=== PATIENT | female | born 1950 | race Caucasian/White ===

== ENCOUNTER 2020-01-12 21:04 | Observation (INO) | payer BC, MEDICARE, OTHER ==
[2020-01-12] MEDS ORDERED: Sodium Chloride 0.9% 1000 ML 1,000 ML IV STA (21:37)
--- NOTE | 2020-01-12 21:43 | ERPHSYRPT ---
- History of Present Illness Time Seen by Provider: 01/12/20 21:28 Source: patient, family, EMS Exam Limitations: other (confusion) Physician History: 69 years old female with multiple medical problems including multiple myeloma currently on oral chemotherapy presented in the ER via EMS with chief complaint of sudden onset confusion, generalized weakness with inability to stand up and ambulate and some confusion almost an hour prior to arrival. Patient is not a very good historian and history is obtained from EMS/. report patient was doing fine and all of a sudden her symptoms started. She has no fever or chills cough or shortness of breath. Patient was sleepy but arousable on EMS arrival. She is maintaining her oxygen saturation around 98% on room air. Patient denies chest pain shortness of breath, abdominal pain nausea or vomiting. She is moving all 4 extremities. Patient is following most of the commands but is confused. This is not her baseline. Per patient is having a downhill course for the last 4 weeks and has been seen at [place] few days ago, was given IV fluids but does not seem much improvement. She has COVID testing done outpatient but not resulted yet. Timing/Duration: today, sudden Severity: moderate Character of Deficits: impaired speech, Left Facial Deficits: off balance Baseline/Normal Cognition: alert oriented x 3 Current Cognition: alert but confused Baseline Gait: walks w/o assistance Associated Symptoms: confusion, fatigue, weakness, slurred speech, trouble walking, No fever, No chills - Review of Systems All Other Systems: Unable due to condition - [place] Coma Scale Best Eye Response (Lesly): (4) open spontaneously Best Verbal Response (Lesly): (4) confused conversation Best Motor Response ([place]): (6) obeys commands Lesly Total: 14 - Physical Exam General Appearance: no apparent distress, alert Eye Exam: bilateral eye: normal inspection, PERRL, EOMI Ears, Nose, Throat Exam: other (Facial droop/facial asymmetry) Neck Exam: normal inspection, supple, full range of motion Respiratory: normal breath sounds, lungs clear Cardiovascular: regular rate/rhythm, normal heart sounds Gastrointestinal: soft, normal bowel sounds, No tenderness Back Exam: normal inspection, No CVA tenderness Extremity Exam: normal inspection, normal range of motion, pelvis stable Mental Status: alert, cooperative, disoriented to time, 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 Exam: normal hearing, PERRL, facial asymmetry, facial droop, No normal speech Motor/Sensory: no motor deficit, no sensory deficit Skin Exam: normal color SpO2 Interpretation: normal O2 Delivery: Room Air Ordered Tests: Active Orders 24 hr Category Date Time Status Accucheck STAT Care 01/12/20 21:37 Active Shop Welder STAT Care 01/12/20 21:38 Active Catheter-Shafter Macario STAT Care 01/12/20 21:37 Active EKG-ER Only STAT Care 01/12/20 21:37 Active IV Insertion STAT Care 01/12/20 21:37 Active IV Insertion-2nd Peripheral STAT Care 01/12/20 21:37 Active NPO (ED) STAT Care 01/12/20 21:37 Active CHEST 1 VIEW (PORTABLE) Stat Exams 01/12/20 21:[address] ANGIOGRAPHY NECK [CT] Routine Exams 01/12/20 Ordered CTA HEAD W AND/OR WO CONTRAST [CT] Stat Exams 01/12/20 23:17 Ordered HEAD WITHOUT CONTRAST [CT] Stat Exams 01/12/20 21:37 Taken ARTERIAL BLOOD GASES Urgent Lab 01/12/20 22:12 Completed BLOOD CULTURE Stat Lab 01/12/20 23:31 Received CBC W DIFF Stat Lab 01/12/20 22:15 Completed CMP Stat Lab 01/12/20 22:15 Completed CULTURE,URINE Stat Lab 01/12/20 23:37 Received Lactic Acid Stat Lab 01/12/20 22:12 Completed MAG [MAGNESIUM] Stat Lab 01/12/20 22:00 Completed Manual Differential NC Stat Lab 01/12/20 22:15 Completed PROTIME WITH INR Stat Lab 01/12/20 22:15 Completed PTT Stat Lab 01/12/20 22:15 Completed UA W/RFX UR CULTURE Stat Lab 01/12/20 23:37 Completed Transfer Order Routine Transfer 01/12/20 Ordered Medication Summary Generic Name Dose Route Start Last Admin Trade Name Freq PRN Reason Stop Dose Admin Vancomycin HCl 250 mls @ 250 mls/hr 01/12/20 23:15 Vancomycin 1gm/ Ns 250ml IV 01/13/20 01:14 Q1H [place] Discontinued Medications Generic Name Dose Route Start Last Admin Trade Name Freq PRN Reason Stop Dose Admin Sodium Chloride 1,000 mls @ 999 mls/hr 01/12/20 21:37 01/12/20 22:07 Sodium Chloride 0.9% 1000 Ml IV 01/12/20 22:37 999 mls/hr .Q1H1M STA Administration Sodium Chloride Confirm 01/12/20 21:49 Sodium Chloride 0.9% 1000 Ml Administered 01/12/20 21:50 Dose 1,000 mls @ ud .ROUTE .STK-MED ONE Piperacillin Sod/Tazobactam 100 mls @ 200 mls/hr 01/12/20 23:13 Sod 3.375 gm/ Sodium Chloride IV 01/12/20 23:42 STAT ONE Piperacillin Sod/Tazobactam Sod Confirm 01/12/20 23:52 Zosyn 3.375 Gm Vial Administered 01/12/20 23:53 Dose 3.375 gm IV .STK-MED ONE Lab/Rad Data: Laboratory Result Diagrams 01/12/20 22:15 01/12/20 22:15 Laboratory Results 01/12/20 01/12/20 01/12/20 Range/Units 23:37 22:15 22:15 WBC (4.0-10.5) K/mm3 RBC (4.1-5.4) M/mm3 Hgb (12.0-16.0) gm/dl Hct (35-47) % MCV (78-100) fl MCH (26-32) pg MCHC (32-36) g/dl RDW (11.5-14.0) % Plt Count (150-450) K/mm3 MPV (7.5-11.0) fl PT 16.1 H (9.95-12.35) SECONDS INR 1.41 (0.8-3.0) APTT 24.3 L (25.3-37.0) SECONDS Puncture Site pCO2 (35-45) mmHg pO2 (75-100) mmHg Base Excess (-2.0-2.0) O2 Saturation (94-100) g/dF ABG pH (7.35-7.45) ABG HCO3 (22-28) ABG O2 Sat (Measured) (95-100) % Adrian Test A-a Gradient a/A Ratio Hemoglobin Carboxyhemoglobin (0.0-6.9) % THgb Methemoglobin (1.4-1.5) % Potassium 3.2 L (3.5-5.1) Temperature C POC O2 Flow Rate % Sodium 133 L (137-145) mmol/L Chloride 103 (98-107) mmol/L Carbon Dioxide 20 L (22-30) mmol/L Anion Gap 12.5 (5-15) MEQ/L BUN 16 (7-17) mg/dL Creatinine 0.54 (0.52-1.04) mg/dL Estimated GFR > 60.0 ML/MIN Glucose 153 H (74-106) mg/dL Lactic Acid (0.4-2.0) Calcium 7.6 L (8.4-10.2) mg/dL Magnesium (1.6-2.3) mg/dL Total Bilirubin 1.00 (0.2-1.3) mg/dL AST 13 L (14-36) U/L ALT 10 (0-35) U/L Alkaline Phosphatase 48 (38-126) U/L Serum Total Protein 5.1 L (6.3-8.2) g/dL Albumin 2.8 L (3.5-5.0) g/dL Urine Color YELLOW (YELLOW) Urine Appearance SLIGHTLY CLOUDY (CLEAR) Urine pH 5.0 (5-6) Ur Specific [place] 1.025 (1.005-1.025) Urine Protein 30 (Negative) Urine Ketones MODERATE (NEGATIVE) Urine Blood MODERATE (0-5) Marcus/ul Urine Nitrite POSITIVE (NEGATIVE) Urine Bilirubin NEGATIVE (NEGATIVE) Urine Urobilinogen NEGATIVE (0-1) mg/dL Ur Leukocyte Esterase NEGATIVE (NEGATIVE) Urine WBC (Auto) 3-5 (0-5) /HPF Urine RBC (Auto) 0-2 (0-2) /HPF U Hyaline Cast (Auto) 11-25 (0-2) /LPF U Epithel Cells (Auto) NONE (FEW) /HPF Urine Bacteria (Auto) FEW (NEGATIVE) /HPF Urine Mucus (Auto) MANY (NEGATIVE) /HPF Urine Culture Reflexed YES (NO) Urine Glucose >=500 (NEGATIVE) mg/dL 01/12/20 01/12/20 01/12/20 Range/Units 22:15 22:12 22:12 WBC 2.6 L (4.0-10.5) K/mm3 RBC 2.90 L (4.1-5.4) M/mm3 Hgb 8.1 L (12.0-16.0) gm/dl Hct 25.0 L (35-47) % MCV 86.2 (78-100) fl MCH 27.9 (26-32) pg MCHC 32.4 (32-36) g/dl RDW 15.9 H (11.5-14.0) % Plt Count 178 (150-450) K/mm3 MPV 10.9 (7.5-11.0) fl PT (9.95-12.35) SECONDS INR (0.8-3.0) APTT (25.3-37.0) SECONDS Puncture Site RIGHT RADIAL pCO2 24 L (35-45) mmHg pO2 159 H* (75-100) mmHg Base Excess -3.3 L (-2.0-2.0) O2 Saturation 97.2 (94-100) g/dF ABG pH 7.49 H (7.35-7.45) ABG HCO3 18.3 L (22-28) ABG O2 Sat (Measured) 97.2 (95-100) % Adrian Test YES A-a Gradient 11 a/A Ratio 0.94 Hemoglobin 8.2 Carboxyhemoglobin 0.0 (0.0-6.9) % THgb Methemoglobin 0.0 L (1.4-1.5) % Potassium 2.9 L* (3.5-5.1) Temperature 37.0 C POC O2 Flow Rate 28 % Sodium (137-145) mmol/L Chloride (98-107) mmol/L Carbon Dioxide (22-30) mmol/L Anion Gap (5-15) MEQ/L BUN (7-17) mg/dL Creatinine (0.52-1.04) mg/dL Estimated GFR ML/MIN Glucose (74-106) mg/dL Lactic Acid 0.6 (0.4-2.0) Calcium (8.4-10.2) mg/dL Magnesium (1.6-2.3) mg/dL Total Bilirubin (0.2-1.3) mg/dL AST (14-36) U/L ALT (0-35) U/L Alkaline Phosphatase (38-126) U/L Serum Total Protein (6.3-8.2) g/dL Albumin (3.5-5.0) g/dL Urine Color (YELLOW) Urine Appearance (CLEAR) Urine pH (5-6) Ur Specific [place] (1.005-1.025) Urine Protein (Negative) Urine Ketones (NEGATIVE) Urine Blood (0-5) Marcus/ul Urine Nitrite (NEGATIVE) Urine Bilirubin (NEGATIVE) Urine Urobilinogen (0-1) mg/dL Ur Leukocyte Esterase (NEGATIVE) Urine WBC (Auto) (0-5) /HPF Urine RBC (Auto) (0-2) /HPF U Hyaline Cast (Auto) (0-2) /LPF U Epithel Cells (Auto) (FEW) /HPF Urine Bacteria (Auto) (NEGATIVE) /HPF Urine Mucus (Auto) (NEGATIVE) /HPF Urine Culture Reflexed (NO) Urine Glucose (NEGATIVE) mg/dL 01/12/20 Range/Units 22:00 WBC (4.0-10.5) K/mm3 RBC (4.1-5.4) M/mm3 Hgb (12.0-16.0) gm/dl Hct (35-47) % MCV (78-100) fl MCH (26-32) pg MCHC (32-36) g/dl RDW (11.5-14.0) % Plt Count (150-450) K/mm3 MPV (7.5-11.0) fl PT (9.95-12.35) SECONDS INR (0.8-3.0) APTT (25.3-37.0) SECONDS Puncture Site pCO2 (35-45) mmHg pO2 (75-100) mmHg Base Excess (-2.0-2.0) O2 Saturation (94-100) g/dF ABG pH (7.35-7.45) ABG HCO3 (22-28) ABG O2 Sat (Measured) (95-100) % Adrian Test A-a Gradient a/A Ratio Hemoglobin Carboxyhemoglobin (0.0-6.9) % THgb Methemoglobin (1.4-1.5) % Potassium (3.5-5.1) Temperature C POC O2 Flow Rate % Sodium (137-145) mmol/L Chloride (98-107) mmol/L Carbon Dioxide (22-30) mmol/L Anion Gap (5-15) MEQ/L BUN (7-17) mg/dL Creatinine (0.52-1.04) mg/dL Estimated GFR ML/MIN Glucose (74-106) mg/dL Lactic Acid (0.4-2.0) Calcium (8.4-10.2) mg/dL Magnesium 1.9 (1.6-2.3) mg/dL Total Bilirubin (0.2-1.3) mg/dL AST (14-36) U/L ALT (0-35) U/L Alkaline Phosphatase (38-126) U/L Serum Total Protein (6.3-8.2) g/dL Albumin (3.5-5.0) g/dL Urine Color (YELLOW) Urine Appearance (CLEAR) Urine pH (5-6) Ur Specific [place] (1.005-1.025) Urine Protein (Negative) Urine Ketones (NEGATIVE) Urine Blood (0-5) Marcus/ul Urine Nitrite (NEGATIVE) Urine Bilirubin (NEGATIVE) Urine Urobilinogen (0-1) mg/dL Ur Leukocyte Esterase (NEGATIVE) Urine WBC (Auto) (0-5) /HPF Urine RBC (Auto) (0-2) /HPF U Hyaline Cast (Auto) (0-2) /LPF U Epithel Cells (Auto) (FEW) /HPF Urine Bacteria (Auto) (NEGATIVE) /HPF Urine Mucus (Auto) (NEGATIVE) /HPF Urine Culture Reflexed (NO) Urine Glucose (NEGATIVE) mg/dL - Progress Progress: unchanged, re-examined Progress Note: 01/12/20 23:57 69 years old is evaluated for altered mental status with sudden worsening prior to arrival. She is made stroke activated. Prompt CT head is obtained which is negative for any intracranial bleed/visible ischemic stroke. Specialist on- call neurology is consulted who has evaluated patient, since history is not very clear and says that symptoms been going on for the last 4 weeks with generalized weakness, discussed with by neurologist about risk and benefits of TPA and they agreed on holding off on TPA. Per neurology patient probably would have metabolic encephalopathy. Her temperature is low, lactate is normal, could be septic and started on broad-spectrum antibiotics. She has a white count of 2.6 and hemoglobin of 8.1. No previous comparison available I believe patient is running low because of her multiple myeloma. She is given a bolus of fluid and her pressure is stable. Patient is not in any distress but not much improvement in her level of confusion as well. We will continue to hydrate her and will obtain CTA head, will get all the stroke work-up in the morning. Discussed with Dr. Venegas and patient is being admitted. 01/13/20 00:04 Discussion with patient about admission, reported that patient is DNR Discussed with Dr.: Other (Dr. Brasher hospitalist , and Dr. Vito Kennedy [facility] neurologist ) Counseled pt/family regarding: lab results, diagnosis, need for follow-up, rad results - Departure Departure Disposition: In-patient Admission Clinical Impression: Encephalopathy acute, Stroke-like symptom Sepsis Qualifiers: Sepsis type: sepsis due to unspecified organism Sepsis acute organ dysfunction status: unspecified Qualified Code(s): A41.9 - Sepsis, unspecified organism Hypothermia Qualifiers: Encounter type: initial encounter Qualified Code(s): T68.XXXA - Hypothermia, initial encounter Anemia Qualifiers: Anemia type: unspecified type Qualified Code(s): D64.9 - Anemia, unspecified Multiple myeloma Qualifiers: Multiple myeloma remission status: unspecified Qualified Code(s): C90.00 - Multiple myeloma not having achieved remission Condition: Serious Critical Care Time: Yes Critical Care Time(excluding separately billable procedures): Critical 75-104 mins Referrals: JUAN RAMON MONTANO MD [Primary Care Provider] -
[2020-01-12] MEDS ORDERED: Sodium Chloride 0.9% 1000 ML 1,000 ML ONE (21:49)
[2020-01-12 22:18] LABS: Hemoglobin 8.1 gm/dl (12.0-16.0); Mean Cell Volume 86.2 fl (78-100); Mean Corpuscular Hemoglobin 27.9 pg (26-32); Mean Corpuscular Hgb Concent. 32.4 g/dl (32-36); Mean Platelet Volume 10.9 fl (7.5-11.0); Platelet Count 178 K/mm3 (150-450); Red Cell Distribution Width 15.9 % (11.5-14.0); White Blood Count 2.6 K/mm3 (4.0-10.5)
[2020-01-12 22:28] LABS: A-aADO2 11; ABG HEMOGLOBIN 8.2; ARTERIAL BLD GAS O2 SATURATION 97.2 % (95-100); ARTERIAL BLOOD GAS BASE EXCESS -3.3 (-2.0-2.0); ARTERIAL BLOOD GAS FIO2 28 %; ARTERIAL BLOOD GAS PCO2 24 mmHg (35-45); ARTERIAL BLOOD GAS PO2 159 mmHg (75-100); ARTERIAL BLOOD GAS pH 7.49 (7.35-7.45); HCO3- 18.3 (22-28); HGB O2 SAT 97.2 g/dF (94-100); paO2 pAO1 0.94
[2020-01-12 22:29] LABS: ABG POTASSIUM 2.9 (3.5-5.1)
[2020-01-12 22:29] LABS: INR 1.41 (0.8-3.0); PROTIME 16.1 SECONDS (9.95-12.35)
[2020-01-12 22:32] LABS: PTT 24.3 SECONDS (25.3-37.0)
[2020-01-12 22:34] LABS: ALBUMIN 2.8 g/dL (3.5-5.0); ALKALINE PHOSPHATASE 48 U/L (38-126); ANION GAP 12.5 MEQ/L (5-15); BLOOD UREA NITROGEN 16 mg/dL (7-17); CHLORIDE 103 mmol/L (98-107); Calcium 7.6 mg/dL (8.4-10.2); Carbon Dioxide 20 mmol/L (22-30); Creatinine 1 0.54 mg/dL (0.52-1.04); Glucose 153 mg/dL (74-106); Potassium 3.2 mmol/L (3.5-5.1); SGOT/AST 13 U/L (14-36); SGPT/ALT 10 U/L (0-35); SODIUM 133 mmol/L (137-145); Total Protein 5.1 g/dL (6.3-8.2)
[2020-01-12 22:40] LABS: ABG SITE RIGHT RADIAL; ALLEN TEST OK? YES
[2020-01-12] MEDS ORDERED: Zosyn 3.375 GM Vial 3.375 GM in Sodium Chloride 100ML MINI-BAG PLUS 100 ML IV ONE (23:13)
[2020-01-12 23:45] LABS: Appearance SLIGHTLY CLOUDY (CLEAR); Bacteria FEW /HPF (NEGATIVE); Bilirubin NEGATIVE (NEGATIVE); Blood MODERATE Ery/ul (0-5); Glucose >=500 mg/dL (NEGATIVE); Ketones MODERATE (NEGATIVE); Leukocyte Esterase NEGATIVE (NEGATIVE); Mucus MANY /HPF (NEGATIVE); Nitrite POSITIVE (NEGATIVE); Protein,Urine Dip 30 (Negative); RBC 0-2 /HPF (0-2); Specific Gravity 1.025 (1.005-1.025); Urobilinogen NEGATIVE mg/dL (0-1)
[2020-01-12] MEDS ORDERED: Zosyn 3.375 GM Vial IV ONE (23:52)
[2020-01-12] MEDS ORDERED: Vancomycin 1GM/ Ns 250ML*** 250 ML IV ONE (23:52)
[2020-01-12] MEDS ORDERED: Sodium Chloride 0.9% 100 ML IVPB 100 ML IV ONE (23:54)
[2020-01-13 00:18] LABS: BAND 25 % (0.0-2.0); Eosinophil 3 % (0.00-3.0); Lymphocytes 13 % (24-44); Metamyelocyte 1 %; Monocyte 14 % (0.0-12.0); Neutrophils 44 % (36.0-66.0); Poikilocytosis 3+; Total Cells Counted 100
[2020-01-13 00:19] LABS: ACANTHROCYTES 2+; Dohle Bodies 2+; Schistocytes 2+; Tear Drop Cells 1+
[2020-01-13 00:20] LABS: Ovalocytes 1+; Platelet Estimate NORMAL (NORMAL); Polychromasia 1+
[2020-01-13] MEDS ORDERED: VENTOLIN COMMON CANISTER IH PRN (01:24)
[2020-01-13] MEDS ORDERED: Zofran 4 MG/2 ML VIAL IV PRN ×2 (01:24)
[2020-01-13] MEDS ORDERED: HUMALOG SQ PRN (01:24)
[2020-01-13] MEDS ORDERED: Sodium Chloride 0.9% 1000 ML 1,000 ML IV SCH (01:24)
[2020-01-13] MEDS: Vancomycin 1GM/ Ns 250ML*** 250 ML IV SCH ×2 (01:57→03:30)
[2020-01-13] MEDS: Zosyn 3.375 GM Vial 3.375 GM in Sodium Chloride 100ML MINI-BAG PLUS 100 ML IV SCH ×2 (04:36→06:15)
[2020-01-13] MEDS ORDERED: Zosyn 3.375 GM Vial IV ONE (04:39)
[2020-01-13 05:20] LABS: Hematocrit 23.7 % (35-47); Hemoglobin 7.5 gm/dl (12.0-16.0); Mean Cell Volume 86.5 fl (78-100); Mean Corpuscular Hemoglobin 27.4 pg (26-32); Mean Corpuscular Hgb Concent. 31.6 g/dl (32-36); Mean Platelet Volume 10.9 fl (7.5-11.0); Platelet Count 172 K/mm3 (150-450); Red Blood Count 2.74 M/mm3 (4.1-5.4)
[2020-01-13 05:48] LABS: ALBUMIN 2.4 g/dL (3.5-5.0); ALKALINE PHOSPHATASE 47 U/L (38-126); ANION GAP 10.9 MEQ/L (5-15); BLOOD UREA NITROGEN 11 mg/dL (7-17); CHLORIDE 107 mmol/L (98-107); Calcium 7.3 mg/dL (8.4-10.2); Carbon Dioxide 21 mmol/L (22-30); Creatinine 1 0.37 mg/dL (0.52-1.04); Glucose 110 mg/dL (74-106); SGOT/AST 10 U/L (14-36); SGPT/ALT 9 U/L (0-35); SODIUM 135 mmol/L (137-145); Total Protein 4.5 g/dL (6.3-8.2)
[2020-01-13 06:08] LABS: White Blood Count 1.9 K/mm3 (4.0-10.5)
--- NOTE | 2020-01-13 08:48 | XRAY ---
Indication: Stroke. Comparison: None Portable chest clear. Heart is not enlarged with right Port-A-Cath and small hiatal hernia. Bony thorax demonstrates mild osteopenia, degenerative changes, old left 4/5 rib fractures, and partially visualized T12 kyphoplasty. Impression: Nonacute chest with chronic features.
--- NOTE | 2020-01-13 08:50 | XRAY ---
Indication: Right-sided weakness. Loss of speech. Multiple contiguous axial images obtained through the head without contrast. Comparison: None Age-appropriate global atrophy and minimal periventricular degenerative micro-ischemia bilaterally. No acute intracranial hemorrhage, abnormal extra-axial fluid collection, or mass effect. Fourth ventricle is midline without hydrocephalus. Bony calvarium intact. Visualized paranasal sinuses and mastoid air cells are clear. Impression: Nonacute senile brain. Follow-up CT or MRI may yield further information if there remains clinical concern. Comment: Preliminary interpretation was made by [facility]. No critical discrepancy.
--- NOTE | 2020-01-13 09:15 | XRAY ---
Indication: Stroke symptoms. Conventional contrast enhanced CTA neck was performed using 80 cc Isovue 370 contrast. Two-dimensional sagittal and coronal reformatted images obtained. Additional 3-dimensional reformatted images obtained using a separate workstation. Comparison: None Visualized aortic arch demonstrates anatomic variant for bovine arch. No aneurysm/dissection. Left and right common carotid, carotid bulb, internal carotid, and external carotid arteries are normal in CTA appearance. Vertebral arteries are bilaterally symmetric without critical stenosis, obstruction, or AV malformation. Lung apices demonstrate tiny right upper lobe calcified granuloma. Partially visualized right Port-A-Cath. Remaining visualized soft tissues are unremarkable. Osseous structures intact with mild osteopenia, mild/moderate C5-C7 degenerative endplate spurring, small C4 vertebral hemangioma, minimal remote C4 anterior wedging with 25% height loss, inferior T2 Schmorl node, moderate right acromioclavicular degenerative arthropathy, and partially visualized nonunited right acromion fracture. CTA brain reported separately. Impression: Normal CTA neck. Incidental chronic findings detailed above. Comment: Preliminary interpretation was made by [facility]. No critical discrepancy.
--- NOTE | 2020-01-13 09:17 | XRAY ---
Indication: Stroke symptoms. Conventional contrast enhanced CTA brain was performed using 80 cc Isovue 370 contrast. Two-dimensional sagittal and coronal reformatted images obtained. Additional 3-dimensional reformatted images obtained using a separate workstation. Comparison: None CTA neck reported separately. Distal internal carotid arteries demonstrate tortuous parasellar segments, right greater than left. Parasellar segments also demonstrate minimal calcifications bilaterally without critical stenosis/obstruction. Normal carotid terminus with normal branching A1 and M1 bilaterally. More distal anterior cerebral, middle cerebral, anterior communicating, and left posterior communicating arteries are normal in CTA appearance. Anatomic variant for origin of the right posterior cerebral artery. Posterior circulation demonstrates symmetric distal vertebral arteries with normal branching posterior inferior cerebellar arteries bilaterally. Basilar artery is normal in course and caliber. Normal CTA appearance of the basilar tip, left posterior cerebral, both superior cerebellar, and both anterior-inferior cerebellar arteries. Venous system unremarkable. Remaining brain is negative for abnormal enhancing intra or extra-axial mass. Impression: Tortuous parasellar internal carotid arteries with minimal calcifications bilaterally. Remaining CTA brain is negative for critical stenosis/obstruction or AV malformation. Incidental anatomic variant for origin of the right posterior cerebral artery. Comment: Preliminary interpretation was made by [facility]. No critical discrepancy.
[2020-01-13 09:50] LABS: ANISOCYTOSIS 2+; ATYPICAL LYMPHS 1 %; BAND 20 % (0.0-2.0); Eosinophil 3 % (0.00-3.0); Lymphocytes 31 % (24-44); Monocyte 1 % (0.0-12.0); Neutrophils 44 % (36.0-66.0); Poikilocytosis 2+; Total Cells Counted 100
[2020-01-13 09:51] LABS: Polychromasia RARE; Schistocytes 1+; Toxic Granulation 1+
[2020-01-13 09:52] LABS: Platelet Estimate NORMAL (NORMAL)
[2020-01-13] MEDS ORDERED: Pepcid 20 MG VIAL IV SCH (10:00)
[2020-01-13] MEDS ORDERED: ENOXAPARIN SODIUM SQ SCH (10:00)
[2020-01-13 11:59] VITALS: BP 120/59; PULSE 59; O2SAT 94
--- NOTE | 2020-01-13 12:57 | PCM.SSS ---
History of Present Illness - Chief Complaint Chief Complaint: Acute Encephalopathy; UTI; Sepsis History of Present Illness: is a 69 year old female. 69 years old female with multiple medical problems including multiple myeloma currently on oral chemotherapy presented in the ER via EMS with chief complaint of sudden onset confusion, generalized weakness with inability to stand up and ambulate and some confusion almost an hour prior to arrival. Patient is not a very good historian and history is obtained from EMS/. report patient was doing fine and all of a sudden her symptoms started. She has no fever or chills cough or shortness of breath. Patient was sleepy but arousable on EMS arrival. She is maintaining her oxygen saturation around 98% on room air. Patient denies chest pain shortness of breath, abdominal pain nausea or vomiting. She is moving all 4 extremities. Patient is following most of the commands but is confused. This is not her baseline. Per patient is having a downhill course for the last 4 weeks and has been seen at [facility] few days ago, was given IV fluids but does not seem much improvement. She has COVID testing done outpatient reported negative. Due to high risk group patient is admitted as observation till confirmed report - Review of Systems Constitutional: No Fever, No Chills Eyes: No Symptoms Ears, Nose, & Throat: No Symptoms Respiratory: No Cough, No Short Of Breath Cardiac: No Chest Pain, No Edema, No Syncope Abdominal/Gastrointestinal: No Abdominal Pain, No Nausea, No Vomiting, No Diarrhea Genitourinary Symptoms: No Dysuria Musculoskeletal: No Back Pain, No Neck Pain Skin: No Rash Neurological: No Dizziness, No Focal Weakness, No Sensory Changes Psychological: No Symptoms Endocrine: No Symptoms Hematologic/Lymphatic: No Symptoms Immunological/Allergic: No Symptoms Medications & Allergies Home Medications: Home Medication List Atorvastatin Calcium [Lipitor] 40 mg PO HS 01/13/20 [History Confirmed 01/13/20] Lisinopril/Hydrochlorothiazide [Lisinopril-Hctz 10-12.5 mg Tab] 1 tab PO DAILY 01/13/20 [History Confirmed 01/13/20] Magnesium Oxide 400 mg [Mag-Ox 400] 400 mg PO BID 01/13/20 [History Confirmed 01/13/20] Metformin HCl 500 mg [Glucophage 500 MG] 500 mg PO DAILY 01/13/20 [ History Confirmed 01/13/20] Omeprazole 20 mg PO BID 01/13/20 [History Confirmed 01/13/20] Pomalidomide [Pomalyst] 4 mg PO UD 01/13/20 [History Confirmed 01/13/20] Potassium Chloride [Klor-Con M20] 20 meq PO HS 01/13/20 [History Confirmed 01/12] Potassium Chloride [Klor-Con M20] 20 meq PO HS 01/13/20 [History Confirmed 01/12] Potassium Chloride [Klor-Con M20] 40 meq PO DAILY 01/13/20 [History Confirmed ] Promethazine HCl 25 mg [Phenergan 25 mg] 25 mg PO Q6H PRN PRN 01/13/20 [ History Confirmed 01/13/20] Allergies/Adverse Reactions: Allergies Allergy/AdvReac Type Severity Reaction Status Date / Time UNOBTAINABLE Allergy Unverified 01/13/20 01:48 - Past Medical History Past Medical History: Yes Neurological History: No Pertinent History ENT History: No Pertinent History Cardiac History: No Pertinent History Respiratory History: No Pertinent History Endocrine Medical History: No Pertinent History Musculoskelatal History: Bone Cancer GI Medical History: No Pertinent History History: No Pertinent History Pyscho-Social History: No Pertinent History Reproductive Disorders: No Pertinent History Comment: Multiple Myleoma- diagnosed 2012 - Female History Are you now?: No (N) - Past Surgical History Past Surgical History: Yes Neuro Surgical History: No Pertinent History Cardiac History: No Pertinent History Respiratory Surgery: No Pertinent History GI Surgical History: No Pertinent History Genitourinary Surgical Hx: No Pertinent History Musculskeletal Surgical Hx: Orthopedic Surgery Female Surgical History: No Pertinent History Other Surgical History: Back surgery- vertebrate - Social History Smoking Status: Never smoker Exposure to second hand smoke: No Alcohol: None Drug Use: none - Physical Exam Vital Signs: Vital Signs - 24 hr Temp Pulse Pulse Resp BP BP Pulse Ox 01/13/20 11:57 98.1 F 59 L 16 120/59 94 L 01/13/20 11:00 21 01/13/20 10:00 98.5 F 65 24 115/61 99 01/13/20 09:00 57 L 17 01/13/20 08:06 52 L 22 97 01/13/20 07:57 67.4 F 106 H 14 106/52 96 01/13/20 07:00 20 01/13/20 06:00 20 01/13/20 05:37 60 20 97 01/13/20 05:00 18 01/13/20 04:14 97.0 F 58 L 18 107/68 100 01/13/20 04:00 97.5 F 53 L 16 108/54 108/54 100 01/13/20 03:52 97.5 F 56 L 20 108/54 100 01/13/20 03:50 61 20 100 01/13/20 01:27 58 L Oxygen-Last 24 hours Oxygen Flowrate (L/min)-RT 2 General Appearance: no apparent distress, alert Neurologic Exam: alert, oriented x 3, cooperative, normal mood/affect, nml cerebellar function, nml station & gait, sensation nml, No motor deficits Eye Exam: PERRL/EOMI, eyes nml inspection Ears, Nose, Throat Exam: normal ENT inspection, TMs normal, pharynx normal, moist mucous membranes Neck Exam: normal inspection, non-tender, supple, full range of motion Respiratory Exam: normal breath sounds, lungs clear, No respiratory distress Cardiovascular Exam: regular rate/rhythm, normal heart sounds, normal peripheral pulses Gastrointestinal/Abdomen Exam: soft, normal bowel sounds, No tenderness, No mass Back Exam: normal inspection, normal range of motion, No CVA tenderness, No vertebral tenderness Extremity Exam: normal inspection, normal range of motion, pelvis stable Skin Exam: normal color, warm, dry, No rash Lymphatic Exam: No adenopathy Results - Labs Lab/Micro Results: Accuchecks Date 01/13/20 Date 01/13/20 Time 08:00 Time 04:00 Accucheck Value: 104 Lab Results-Last 24 Hours 01/12/20 01/12/20 01/12/20 Range/Units 22:00 22:12 22:12 WBC (4.0-10.5) K/mm3 RBC (4.1-5.4) M/mm3 Hgb (12.0-16.0) gm/dl Hct (35-47) % MCV (78-100) fl MCH (26-32) pg MCHC (32-36) g/dl RDW (11.5-14.0) % Plt Count (150-450) K/mm3 MPV (7.5-11.0) fl Segmented Neutrophils (36.0-66.0) % Band Neutrophils (0.0-2.0) % Lymphocytes (Manual) (24-44) % Monocytes (Manual) (0.0-12.0) % Eosinophils (Manual) (0.00-3.0) % Metamyelocytes % Atypical Lymphocytes % Toxic Granulation Dohle Bodies Platelet Estimate (NORMAL) RBC Morphology Polychromasia Poikilocytosis Anisocytosis Tear Drop Cells Ovalocytes Acanthocytes (Spur) Schistocytes Smear Path Review PT (9.95-12.35) SECONDS INR (0.8-3.0) APTT (25.3-37.0) SECONDS Puncture Site RIGHT RADIAL pCO2 24 L (35-45) mmHg pO2 159 H* (75-100) mmHg Base Excess -3.3 L (-2.0-2.0) O2 Saturation 97.2 (94-100) g/dF ABG pH 7.49 H (7.35-7.45) ABG HCO3 18.3 L (22-28) ABG O2 Sat (Measured) 97.2 (95-100) % Adrian Test YES A-a Gradient 11 a/A Ratio 0.94 Hemoglobin 8.2 Carboxyhemoglobin 0.0 (0.0-6.9) % THgb Methemoglobin 0.0 L (1.4-1.5) % Potassium 2.9 L* (3.5-5.1) Temperature 37.0 C POC O2 Flow Rate 28 % Sodium (137-145) mmol/L Chloride (98-107) mmol/L Carbon Dioxide (22-30) mmol/L Anion Gap (5-15) MEQ/L BUN (7-17) mg/dL Creatinine (0.52-1.04) mg/dL Estimated GFR ML/MIN Glucose (74-106) mg/dL Lactic Acid 0.6 (0.4-2.0) Calcium (8.4-10.2) mg/dL Magnesium 1.9 (1.6-2.3) mg/dL Total Bilirubin (0.2-1.3) mg/dL AST (14-36) U/L ALT (0-35) U/L Alkaline Phosphatase (38-126) U/L Serum Total Protein (6.3-8.2) g/dL Albumin (3.5-5.0) g/dL Prealbumin (17.6-36.0) mg/dL Urine Color (YELLOW) Urine Appearance (CLEAR) Urine pH (5-6) Ur Specific [place] (1.005-1.025) Urine Protein (Negative) Urine Ketones (NEGATIVE) Urine Blood (0-5) Marcus/ul Urine Nitrite (NEGATIVE) Urine Bilirubin (NEGATIVE) Urine Urobilinogen (0-1) mg/dL Ur Leukocyte Esterase (NEGATIVE) Urine WBC (Auto) (0-5) /HPF Urine RBC (Auto) (0-2) /HPF U Hyaline Cast (Auto) (0-2) /LPF U Epithel Cells (Auto) (FEW) /HPF Urine Bacteria (Auto) (NEGATIVE) /HPF Urine Mucus (Auto) (NEGATIVE) /HPF Urine Culture Reflexed (NO) Urine Glucose (NEGATIVE) mg/dL 01/12/20 01/12/20 01/12/20 Range/Units 22:15 22:15 22:15 WBC 2.6 L (4.0-10.5) K/mm3 RBC 2.90 L (4.1-5.4) M/mm3 Hgb 8.1 L (12.0-16.0) gm/dl Hct 25.0 L (35-47) % MCV 86.2 (78-100) fl MCH 27.9 (26-32) pg MCHC 32.4 (32-36) g/dl RDW 15.9 H (11.5-14.0) % Plt Count 178 (150-450) K/mm3 MPV 10.9 (7.5-11.0) fl Segmented Neutrophils 44 (36.0-66.0) % Band Neutrophils 25 H (0.0-2.0) % Lymphocytes (Manual) 13 L (24-44) % Monocytes (Manual) 14 H (0.0-12.0) % Eosinophils (Manual) 3 (0.00-3.0) % Metamyelocytes 1 % Atypical Lymphocytes % Toxic Granulation Dohle Bodies 2+ Platelet Estimate NORMAL (NORMAL) RBC Morphology ABNORMAL Polychromasia 1+ Poikilocytosis 3+ Anisocytosis Tear Drop Cells 1+ Ovalocytes 1+ Acanthocytes (Spur) 2+ Schistocytes 2+ Smear Path Review PT 16.1 H (9.95-12.35) SECONDS INR 1.41 (0.8-3.0) APTT 24.3 L (25.3-37.0) SECONDS Puncture Site pCO2 (35-45) mmHg pO2 (75-100) mmHg Base Excess (-2.0-2.0) O2 Saturation (94-100) g/dF ABG pH (7.35-7.45) ABG HCO3 (22-28) ABG O2 Sat (Measured) (95-100) % Adrian Test A-a Gradient a/A Ratio Hemoglobin Carboxyhemoglobin (0.0-6.9) % THgb Methemoglobin (1.4-1.5) % Potassium 3.2 L (3.5-5.1) Temperature C POC O2 Flow Rate % Sodium 133 L (137-145) mmol/L Chloride 103 (98-107) mmol/L Carbon Dioxide 20 L (22-30) mmol/L Anion Gap 12.5 (5-15) MEQ/L BUN 16 (7-17) mg/dL Creatinine 0.54 (0.52-1.04) mg/dL Estimated GFR > 60.0 ML/MIN Glucose 153 H (74-106) mg/dL Lactic Acid (0.4-2.0) Calcium 7.6 L (8.4-10.2) mg/dL Magnesium (1.6-2.3) mg/dL Total Bilirubin 1.00 (0.2-1.3) mg/dL AST 13 L (14-36) U/L ALT 10 (0-35) U/L Alkaline Phosphatase 48 (38-126) U/L Serum Total Protein 5.1 L (6.3-8.2) g/dL Albumin 2.8 L (3.5-5.0) g/dL Prealbumin (17.6-36.0) mg/dL Urine Color (YELLOW) Urine Appearance (CLEAR) Urine pH (5-6) Ur Specific [place] (1.005-1.025) Urine Protein (Negative) Urine Ketones (NEGATIVE) Urine Blood (0-5) Mracus/ul Urine Nitrite (NEGATIVE) Urine Bilirubin (NEGATIVE) Urine Urobilinogen (0-1) mg/dL Ur Leukocyte Esterase (NEGATIVE) Urine WBC (Auto) (0-5) /HPF Urine RBC (Auto) (0-2) /HPF U Hyaline Cast (Auto) (0-2) /LPF U Epithel Cells (Auto) (FEW) /HPF Urine Bacteria (Auto) (NEGATIVE) /HPF Urine Mucus (Auto) (NEGATIVE) /HPF Urine Culture Reflexed (NO) Urine Glucose (NEGATIVE) mg/dL 01/12/20 01/13/20 01/13/20 Range/Units 23:37 05:01 05:01 WBC 1.9 L* (4.0-10.5) K/mm3 RBC 2.74 L (4.1-5.4) M/mm3 Hgb 7.5 L (12.0-16.0) gm/dl Hct 23.7 L (35-47) % MCV 86.5 (78-100) fl MCH 27.4 (26-32) pg MCHC 31.6 L (32-36) g/dl RDW 16.0 H (11.5-14.0) % Plt Count 172 (150-450) K/mm3 MPV 10.9 (7.5-11.0) fl Segmented Neutrophils 44 (36.0-66.0) % Band Neutrophils 20 H (0.0-2.0) % Lymphocytes (Manual) 31 (24-44) % Monocytes (Manual) 1 (0.0-12.0) % Eosinophils (Manual) 3 (0.00-3.0) % Metamyelocytes % Atypical Lymphocytes 1 % Toxic Granulation 1+ Dohle Bodies Platelet Estimate NORMAL (NORMAL) RBC Morphology ABNORMAL Polychromasia RARE Poikilocytosis 2+ Anisocytosis 2+ Tear Drop Cells Ovalocytes Acanthocytes (Spur) Schistocytes 1+ Smear Path Review Pending PT (9.95-12.35) SECONDS INR (0.8-3.0) APTT (25.3-37.0) SECONDS Puncture Site pCO2 (35-45) mmHg pO2 (75-100) mmHg Base Excess (-2.0-2.0) O2 Saturation (94-100) g/dF ABG pH (7.35-7.45) ABG HCO3 (22-28) ABG O2 Sat (Measured) (95-100) % Adrian Test A-a Gradient a/A Ratio Hemoglobin Carboxyhemoglobin (0.0-6.9) % THgb Methemoglobin (1.4-1.5) % Potassium 3.0 L (3.5-5.1) Temperature C POC O2 Flow Rate % Sodium 135 L (137-145) mmol/L Chloride 107 (98-107) mmol/L Carbon Dioxide 21 L (22-30) mmol/L Anion Gap 10.9 (5-15) MEQ/L BUN 11 (7-17) mg/dL Creatinine 0.37 L (0.52-1.04) mg/dL Estimated GFR > 60.0 ML/MIN Glucose 110 H (74-106) mg/dL Lactic Acid (0.4-2.0) Calcium 7.3 L (8.4-10.2) mg/dL Magnesium (1.6-2.3) mg/dL Total Bilirubin 0.60 (0.2-1.3) mg/dL AST 10 L (14-36) U/L ALT 9 (0-35) U/L Alkaline Phosphatase 47 (38-126) U/L Serum Total Protein 4.5 L (6.3-8.2) g/dL Albumin 2.4 L (3.5-5.0) g/dL Prealbumin (17.6-36.0) mg/dL Urine Color YELLOW (YELLOW) Urine Appearance SLIGHTLY CLOUDY (CLEAR) Urine pH 5.0 (5-6) Ur Specific [place] 1.025 (1.005-1.025) Urine Protein 30 (Negative) Urine Ketones MODERATE (NEGATIVE) Urine Blood MODERATE (0-5) Marcus/ul Urine Nitrite POSITIVE (NEGATIVE) Urine Bilirubin NEGATIVE (NEGATIVE) Urine Urobilinogen NEGATIVE (0-1) mg/dL Ur Leukocyte Esterase NEGATIVE (NEGATIVE) Urine WBC (Auto) 3-5 (0-5) /HPF Urine RBC (Auto) 0-2 (0-2) /HPF U Hyaline Cast (Auto) 11-25 (0-2) /LPF U Epithel Cells (Auto) NONE (FEW) /HPF Urine Bacteria (Auto) FEW (NEGATIVE) /HPF Urine Mucus (Auto) MANY (NEGATIVE) /HPF Urine Culture Reflexed YES (NO) Urine Glucose >=500 (NEGATIVE) mg/dL 01/13/20 Range/Units 05:01 WBC (4.0-10.5) K/mm3 RBC (4.1-5.4) M/mm3 Hgb (12.0-16.0) gm/dl Hct (35-47) % MCV (78-100) fl MCH (26-32) pg MCHC (32-36) g/dl RDW (11.5-14.0) % Plt Count (150-450) K/mm3 MPV (7.5-11.0) fl Segmented Neutrophils (36.0-66.0) % Band Neutrophils (0.0-2.0) % Lymphocytes (Manual) (24-44) % Monocytes (Manual) (0.0-12.0) % Eosinophils (Manual) (0.00-3.0) % Metamyelocytes % Atypical Lymphocytes % Toxic Granulation Dohle Bodies Platelet Estimate (NORMAL) RBC Morphology Polychromasia Poikilocytosis Anisocytosis Tear Drop Cells Ovalocytes Acanthocytes (Spur) Schistocytes Smear Path Review PT (9.95-12.35) SECONDS INR (0.8-3.0) APTT (25.3-37.0) SECONDS Puncture Site pCO2 (35-45) mmHg pO2 (75-100) mmHg Base Excess (-2.0-2.0) O2 Saturation (94-100) g/dF ABG pH (7.35-7.45) ABG HCO3 (22-28) ABG O2 Sat (Measured) (95-100) % Adrian Test A-a Gradient a/A Ratio Hemoglobin Carboxyhemoglobin (0.0-6.9) % THgb Methemoglobin (1.4-1.5) % Potassium (3.5-5.1) Temperature C POC O2 Flow Rate % Sodium (137-145) mmol/L Chloride (98-107) mmol/L Carbon Dioxide (22-30) mmol/L Anion Gap (5-15) MEQ/L BUN (7-17) mg/dL Creatinine (0.52-1.04) mg/dL Estimated GFR ML/MIN Glucose (74-106) mg/dL Lactic Acid (0.4-2.0) Calcium (8.4-10.2) mg/dL Magnesium (1.6-2.3) mg/dL Total Bilirubin (0.2-1.3) mg/dL AST (14-36) U/L ALT (0-35) U/L Alkaline Phosphatase (38-126) U/L Serum Total Protein (6.3-8.2) g/dL Albumin (3.5-5.0) g/dL Prealbumin 6.99 L (17.6-36.0) mg/dL Urine Color (YELLOW) Urine Appearance (CLEAR) Urine pH (5-6) Ur Specific [place] (1.005-1.025) Urine Protein (Negative) Urine Ketones (NEGATIVE) Urine Blood (0-5) Marcus/ul Urine Nitrite (NEGATIVE) Urine Bilirubin (NEGATIVE) Urine Urobilinogen (0-1) mg/dL Ur Leukocyte Esterase (NEGATIVE) Urine WBC (Auto) (0-5) /HPF Urine RBC (Auto) (0-2) /HPF U Hyaline Cast (Auto) (0-2) /LPF U Epithel Cells (Auto) (FEW) /HPF Urine Bacteria (Auto) (NEGATIVE) /HPF Urine Mucus (Auto) (NEGATIVE) /HPF Urine Culture Reflexed (NO) Urine Glucose (NEGATIVE) mg/dL Accuchecks Date 01/13/20 Date 01/13/20 Time 08:00 Time 04:00 Accucheck Value: 104 - Radiology Impressions Radiology Exams & Impressions: Radiology Procedures Category Date Time Status CHEST 1 VIEW (PORTABLE) Stat Exams 01/12/20 21:[address] ANGIOGRAPHY NECK [CT] Routine Exams 01/12/20 01:18 Completed CTA HEAD W AND/OR WO CONTRAST [CT] Stat Exams 01/12/20 23:17 Completed HEAD WITHOUT CONTRAST [CT] Stat Exams 01/12/20 21:37 Completed - Other Procedures and Tests Respiratory Therapy 01/13/20 05:22 Oxygen Nasal Cannula 2 lpm Respiratory Therapy Assessment DAILY Assessment/Plan (1) COVID-19 ruled out Current Visit: Yes Status: Acute Assessment & Plan: Laboratory Results - last 24 hr 01/12/20 01/12/20 01/12/20 22:00 22:12 22:12 WBC RBC Hgb Hct MCV MCH MCHC RDW Plt Count MPV Segmented Neutrophils Band Neutrophils Lymphocytes (Manual) Monocytes (Manual) Eosinophils (Manual) Metamyelocytes Atypical Lymphocytes Toxic Granulation Dohle Bodies Platelet Estimate RBC Morphology Polychromasia Poikilocytosis Anisocytosis Tear Drop Cells Ovalocytes Acanthocytes (Spur) Schistocytes PT INR APTT Puncture Site RIGHT RADIAL pCO2 24 L pO2 159 H* Base Excess -3.3 L O2 Saturation 97.2 ABG pH 7.49 H ABG HCO3 18.3 L ABG O2 Sat (Measured) 97.2 Adrian Test YES A-a Gradient 11 a/A Ratio 0.94 Hemoglobin 8.2 Carboxyhemoglobin 0.0 Methemoglobin 0.0 L Potassium 2.9 L* Temperature 37.0 POC O2 Flow Rate 28 Sodium Chloride Carbon Dioxide Anion Gap BUN Creatinine Estimated GFR Glucose Lactic Acid 0.6 Calcium Magnesium 1.9 Total Bilirubin AST ALT Alkaline Phosphatase Serum Total Protein Albumin Prealbumin Urine Color Urine Appearance Urine pH Ur Specific [place] Urine Protein Urine Ketones Urine Blood Urine Nitrite Urine Bilirubin Urine Urobilinogen Ur Leukocyte Esterase Urine WBC (Auto) Urine RBC (Auto) U Hyaline Cast (Auto) U Epithel Cells (Auto) Urine Bacteria (Auto) Urine Mucus (Auto) Urine Culture Reflexed Urine Glucose 01/12/20 01/12/20 01/12/20 22:15 22:15 22:15 WBC 2.6 L RBC 2.90 L Hgb 8.1 L Hct 25.0 L MCV 86.2 MCH 27.9 MCHC 32.4 RDW 15.9 H Plt Count 178 MPV 10.9 Segmented Neutrophils 44 Band Neutrophils 25 H Lymphocytes (Manual) 13 L Monocytes (Manual) 14 H Eosinophils (Manual) 3 Metamyelocytes 1 Atypical Lymphocytes Toxic Granulation Dohle Bodies 2+ Platelet Estimate NORMAL RBC Morphology ABNORMAL Polychromasia 1+ Poikilocytosis 3+ Anisocytosis Tear Drop Cells 1+ Ovalocytes 1+ Acanthocytes (Spur) 2+ Schistocytes 2+ PT 16.1 H INR 1.41 APTT 24.3 L Puncture Site pCO2 pO2 Base Excess O2 Saturation ABG pH ABG HCO3 ABG O2 Sat (Measured) Adrian Test A-a Gradient a/A Ratio Hemoglobin Carboxyhemoglobin Methemoglobin Potassium 3.2 L Temperature POC O2 Flow Rate Sodium 133 L Chloride 103 Carbon Dioxide 20 L Anion Gap 12.5 BUN 16 Creatinine 0.54 Estimated GFR > 60.0 Glucose 153 H Lactic Acid Calcium 7.6 L Magnesium Total Bilirubin 1.00 AST 13 L ALT 10 Alkaline Phosphatase 48 Serum Total Protein 5.1 L Albumin 2.8 L Prealbumin Urine Color Urine Appearance Urine pH Ur Specific [place] Urine Protein Urine Ketones Urine Blood Urine Nitrite Urine Bilirubin Urine Urobilinogen Ur Leukocyte Esterase Urine WBC (Auto) Urine RBC (Auto) U Hyaline Cast (Auto) U Epithel Cells (Auto) Urine Bacteria (Auto) Urine Mucus (Auto) Urine Culture Reflexed Urine Glucose 01/12/20 01/13/20 01/13/20 23:37 05:01 05:01 WBC 1.9 L* RBC 2.74 L Hgb 7.5 L Hct 23.7 L MCV 86.5 MCH 27.4 MCHC 31.6 L RDW 16.0 H Plt Count 172 MPV 10.9 Segmented Neutrophils 44 Band Neutrophils 20 H Lymphocytes (Manual) 31 Monocytes (Manual) 1 Eosinophils (Manual) 3 Metamyelocytes Atypical Lymphocytes 1 Toxic Granulation 1+ Dohle Bodies Platelet Estimate NORMAL RBC Morphology ABNORMAL Polychromasia RARE Poikilocytosis 2+ Anisocytosis 2+ Tear Drop Cells Ovalocytes Acanthocytes (Spur) Schistocytes 1+ PT INR APTT Puncture Site pCO2 pO2 Base Excess O2 Saturation ABG pH ABG HCO3 ABG O2 Sat (Measured) Adrian Test A-a Gradient a/A Ratio Hemoglobin Carboxyhemoglobin Methemoglobin Potassium 3.0 L Temperature POC O2 Flow Rate Sodium 135 L Chloride 107 Carbon Dioxide 21 L Anion Gap 10.9 BUN 11 Creatinine 0.37 L Estimated GFR > 60.0 Glucose 110 H Lactic Acid Calcium 7.3 L Magnesium Total Bilirubin 0.60 AST 10 L ALT 9 Alkaline Phosphatase 47 Serum Total Protein 4.5 L Albumin 2.4 L Prealbumin Urine Color YELLOW Urine Appearance SLIGHTLY CLOUDY Urine pH 5.0 Ur Specific [place] 1.025 Urine Protein 30 Urine Ketones MODERATE Urine Blood MODERATE Urine Nitrite POSITIVE Urine Bilirubin NEGATIVE Urine Urobilinogen NEGATIVE Ur Leukocyte Esterase NEGATIVE Urine WBC (Auto) 3-5 Urine RBC (Auto) 0-2 U Hyaline Cast (Auto) 11-25 U Epithel Cells (Auto) NONE Urine Bacteria (Auto) FEW Urine Mucus (Auto) MANY Urine Culture Reflexed YES Urine Glucose >=500 01/13/20 05:01 WBC RBC Hgb Hct MCV MCH MCHC RDW Plt Count MPV Segmented Neutrophils Band Neutrophils Lymphocytes (Manual) Monocytes (Manual) Eosinophils (Manual) Metamyelocytes Atypical Lymphocytes Toxic Granulation Dohle Bodies Platelet Estimate RBC Morphology Polychromasia Poikilocytosis Anisocytosis Tear Drop Cells Ovalocytes Acanthocytes (Spur) Schistocytes PT INR APTT Puncture Site pCO2 pO2 Base Excess O2 Saturation ABG pH ABG HCO3 ABG O2 Sat (Measured) Adrian Test A-a Gradient a/A Ratio Hemoglobin Carboxyhemoglobin Methemoglobin Potassium Temperature POC O2 Flow Rate Sodium Chloride Carbon Dioxide Anion Gap BUN Creatinine Estimated GFR Glucose Lactic Acid Calcium Magnesium Total Bilirubin AST ALT Alkaline Phosphatase Serum Total Protein Albumin Prealbumin 6.99 L Urine Color Urine Appearance Urine pH Ur Specific [place] Urine Protein Urine Ketones Urine Blood Urine Nitrite Urine Bilirubin Urine Urobilinogen Ur Leukocyte Esterase Urine WBC (Auto) Urine RBC (Auto) U Hyaline Cast (Auto) U Epithel Cells (Auto) Urine Bacteria (Auto) Urine Mucus (Auto) Urine Culture Reflexed Urine Glucose Code(s): Z03.818 - ENCNTR FOR OBS FOR SUSP EXPSR TO [facility]ENTS RULED OUT (2) Encephalopathy acute Current Visit: Yes Status: Acute Code(s): G93.40 - ENCEPHALOPATHY, UNSPECIFIED (3) Hypothermia Current Visit: Yes Status: Acute Qualifiers: Encounter type: initial encounter Qualified Code(s): T68.XXXA - Hypothermia , initial encounter Code(s): T68.XXXA - HYPOTHERMIA, INITIAL ENCOUNTER (4) Multiple myeloma Current Visit: Yes Status: Acute Qualifiers: Multiple myeloma remission status: unspecified Qualified Code(s): C90.00 - Multiple myeloma not having achieved remission Code(s): C90.00 - MULTIPLE MYELOMA NOT HAVING ACHIEVED REMISSION (5) Sepsis Current Visit: Yes Status: Acute Qualifiers: Sepsis type: sepsis due to unspecified organism Sepsis acute organ dysfunction status: unspecified Qualified Code(s): A41.9 - Sepsis, unspecified organism (6) Stroke-like symptom Current Visit: Yes Status: Acute Code(s): R29.90 - UNSPECIFIED SYMPTOMS AND SIGNS INVOLVING THE NERVOUS SYSTEM Hospital Summary - Hospital Course Hospital Course: Chief Complaint Diagnosis Acute Encephalopathy; UTI; Sepsis Allergies Allergy/AdvReac Type Severity Reaction Status Date / Time UNOBTAINABLE Allergy Unverified 01/13/20 01:48 Vital Signs (Last 24 hours) Temp Pulse Pulse Resp BP BP Pulse Ox 01/13/20 11:57 98.1 F 59 L 16 120/59 94 L 01/13/20 11:00 21 01/13/20 10:00 98.5 F 65 24 115/61 99 01/13/20 09:00 57 L 17 01/13/20 08:06 52 L 22 97 01/13/20 07:57 67.4 F 106 H 14 106/52 96 01/13/20 07:00 20 01/13/20 06:00 20 01/13/20 05:37 60 20 97 01/13/20 05:00 18 01/13/20 04:14 97.0 F 58 L 18 107/68 100 01/13/20 04:00 97.5 F 53 L 16 108/54 108/54 100 01/13/20 03:52 97.5 F 56 L 20 108/54 100 01/13/20 03:50 61 20 100 01/13/20 01:27 58 L Home Medications Medication Instructions Recorded Confirmed Last Taken Type Atorvastatin Calcium [Lipitor] 40 mg PO HS 01/13/20 01/13/20 01/12/20 09:00 History Lisinopril/Hydrochlorothiazide 1 tab PO DAILY 01/13/20 01/13/20 01/12/20 09:00 History [Lisinopril-Hctz 10-12.5 mg Tab] Magnesium Oxide 400 mg [Mag-Ox 400 mg PO BID 01/13/20 01/13/20 01/12/20 09: 00 History 400] Metformin HCl 500 mg 500 mg PO DAILY 01/13/20 01/13/20 01/12/20 09:00 History [Glucophage 500 MG] Omeprazole 20 mg PO BID 01/13/20 01/13/20 01/12/20 09:00 History Pomalidomide [Pomalyst] 4 mg PO UD 01/13/20 01/13/20 01/12/20 09:00 History Potassium Chloride [Klor-Con M20] 20 meq PO 01/13/20 01/13/20 Unknown History Potassium Chloride [Klor-Con M20] 20 meq PO 01/13/20 01/13/20 01/11/20 20:00 History Potassium Chloride [Klor-Con M20] 40 meq PO DAILY 01/13/20 01/13/20 01/12/20 09: 00 History Promethazine HCl 25 mg 25 mg PO Q6H PRN PRN 01/13/20 01/13/20 Unknown History [Phenergan 25 mg] Current Medications Generic Name Dose Route Start Last Admin Trade Name Freq PRN Reason Stop Dose Admin Albuterol Sulfate 4 puff 01/13/20 01:24 Ventolin Common Canister IH 07/01/20 01:23 Q4H PRN PRN SHORTNESS OF BREATH/WHEEZING Enoxaparin Sodium 40 mg 01/13/20 10:00 01/13/20 10:42 Enoxaparin Sodium SQ 02/12/20 09:59 40 mg DAILY [place] Administration Famotidine 20 mg 01/13/20 10:00 01/13/20 10:42 Pepcid 20 Mg Vial IV 02/12/20 09:59 20 mg Q12HT [place] Administration Piperacillin Sod/Tazobactam 100 mls @ 200 mls/hr 01/13/20 01:24 01/13/20 06: 15 Sod 3.375 gm/ Sodium Chloride IV 02/12/20 01:23 200 mls/hr Q6HT [place] Administration Sodium Chloride 1,000 mls @ 100 mls/hr 01/13/20 01:24 01/13/20 04:42 Sodium Chloride 0.9% 1000 Ml IV 02/12/20 01:23 100 mls/hr .Q10H [place] Administration Insulin Human Lispro 0 unit 01/13/20 01:24 Humalog SQ 02/12/20 01:23 UD PRN HYPERGLYCEMIA Ondansetron HCl 4 mg 01/13/20 01:24 Zofran 4 Mg/2 Ml Vial IV 02/12/20 01:23 Q6H PRN PRN NAUSEA/VOMITING Discontinued Medications Generic Name Dose Route Start Last Admin Trade Name Freq PRN Reason Stop Dose Admin Sodium Chloride 1,000 mls @ 999 mls/hr 01/12/20 21:37 01/12/20 22:07 Sodium Chloride 0.9% 1000 Ml IV 01/12/20 22:37 999 mls/hr .Q1H1M STA Administration Sodium Chloride Confirm 01/12/20 21:49 Sodium Chloride 0.9% 1000 Ml Administered 01/12/20 21:50 Dose 1,000 mls @ ud .ROUTE .STK-MED ONE Piperacillin Sod/Tazobactam 100 mls @ 200 mls/hr 01/12/20 23:13 01/13/20 01: 06 Sod 3.375 gm/ Sodium Chloride IV 01/12/20 23:42 200 mls/hr STAT ONE Administration Vancomycin HCl 250 mls @ 250 mls/hr 01/12/20 23:15 01/13/20 03:30 Vancomycin 1gm/ Ns 250ml IV 01/13/20 01:14 250 mls/hr Q1H [place] Administration Sodium Chloride Confirm 01/12/20 23:54 Sodium Chloride 0.9% 100 Ml Ivpb Administered 01/12/20 23:55 Dose 100 mls @ ud IV .STK-MED ONE Vancomycin HCl Confirm 01/12/20 23:52 Vancomycin 1gm/ Ns 250ml Administered 01/12/20 23:53 Dose 250 mls @ ud IV .STK-MED ONE Piperacillin Sod/Tazobactam Sod Confirm 01/12/20 23:52 Zosyn 3.375 Gm Vial Administered 01/12/20 23:53 Dose 3.375 gm IV .STK-MED ONE Piperacillin Sod/Tazobactam Sod Confirm 01/13/20 04:39 Zosyn 3.375 Gm Vial Administered 01/13/20 04:40 Dose 3.375 gm IV .STK-MED ONE Intake & Output (Last 24 hours) 01/11/20 01/12/20 01/13/20 01/14/20 11:59 11:59 11:59 11:59 Output Total 650 Balance -650 Weight 60.781 kg Microbiology Results (Last 24 hours) 01/12/20 23:37 Urine, Catheterized Urine Culture - Pending 01/12/20 23:31 Blood Blood Culture Gram Stain - Pending 01/12/20 23:31 Blood Blood Culture - Pending 01/12/20 22:15 Blood Blood Culture Gram Stain - Pending 01/12/20 22:15 Blood Blood Culture - Pending Laboratory Results (Last 24 hours) 01/13/20 01/13/20 01/13/20 05:01 05:01 05:01 WBC 1.9 L* RBC 2.74 L Hgb 7.5 L Hct 23.7 L MCV 86.5 MCH 27.4 MCHC 31.6 L RDW 16.0 H Plt Count 172 MPV 10.9 Segmented Neutrophils 44 Band Neutrophils 20 H Lymphocytes (Manual) 31 Monocytes (Manual) 1 Eosinophils (Manual) 3 Metamyelocytes Atypical Lymphocytes 1 Toxic Granulation 1+ Dohle Bodies Platelet Estimate NORMAL RBC Morphology ABNORMAL Polychromasia RARE Poikilocytosis 2+ Anisocytosis 2+ Tear Drop Cells Ovalocytes Acanthocytes (Spur) Schistocytes 1+ PT INR APTT Puncture Site pCO2 pO2 Base Excess O2 Saturation ABG pH ABG HCO3 ABG O2 Sat (Measured) Adrian Test A-a Gradient a/A Ratio Hemoglobin Carboxyhemoglobin Methemoglobin Potassium 3.0 L Temperature POC O2 Flow Rate Sodium 135 L Chloride 107 Carbon Dioxide 21 L Anion Gap 10.9 BUN 11 Creatinine 0.37 L Estimated GFR > 60.0 Glucose 110 H Lactic Acid Calcium 7.3 L Magnesium Total Bilirubin 0.60 AST 10 L ALT 9 Alkaline Phosphatase 47 Serum Total Protein 4.5 L Albumin 2.4 L Prealbumin 6.99 L Urine Color Urine Appearance Urine pH Ur Specific [place] Urine Protein Urine Ketones Urine Blood Urine Nitrite Urine Bilirubin Urine Urobilinogen Ur Leukocyte Esterase Urine WBC (Auto) Urine RBC (Auto) U Hyaline Cast (Auto) U Epithel Cells (Auto) Urine Bacteria (Auto) Urine Mucus (Auto) Urine Culture Reflexed Urine Glucose 01/12/20 01/12/20 01/12/20 23:37 22:15 22:15 WBC RBC Hgb Hct MCV MCH MCHC RDW Plt Count MPV Segmented Neutrophils Band Neutrophils Lymphocytes (Manual) Monocytes (Manual) Eosinophils (Manual) Metamyelocytes Atypical Lymphocytes Toxic Granulation Dohle Bodies Platelet Estimate RBC Morphology Polychromasia Poikilocytosis Anisocytosis Tear Drop Cells Ovalocytes Acanthocytes (Spur) Schistocytes PT 16.1 H INR 1.41 APTT 24.3 L Puncture Site pCO2 pO2 Base Excess O2 Saturation ABG pH ABG HCO3 ABG O2 Sat (Measured) Adrian Test A-a Gradient a/A Ratio Hemoglobin Carboxyhemoglobin Methemoglobin Potassium 3.2 L Temperature POC O2 Flow Rate Sodium 133 L Chloride 103 Carbon Dioxide 20 L Anion Gap 12.5 BUN 16 Creatinine 0.54 Estimated GFR > 60.0 Glucose 153 H Lactic Acid Calcium 7.6 L Magnesium Total Bilirubin 1.00 AST 13 L ALT 10 Alkaline Phosphatase 48 Serum Total Protein 5.1 L Albumin 2.8 L Prealbumin Urine Color YELLOW Urine Appearance SLIGHTLY CLOUDY Urine pH 5.0 Ur Specific [place] 1.025 Urine Protein 30 Urine Ketones MODERATE Urine Blood MODERATE Urine Nitrite POSITIVE Urine Bilirubin NEGATIVE Urine Urobilinogen NEGATIVE Ur Leukocyte Esterase NEGATIVE Urine WBC (Auto) 3-5 Urine RBC (Auto) 0-2 U Hyaline Cast (Auto) 11-25 U Epithel Cells (Auto) NONE Urine Bacteria (Auto) FEW Urine Mucus (Auto) MANY Urine Culture Reflexed YES Urine Glucose >=500 01/12/20 01/12/20 01/12/20 22:15 22:12 22:12 WBC 2.6 L RBC 2.90 L Hgb 8.1 L Hct 25.0 L MCV 86.2 MCH 27.9 MCHC 32.4 RDW 15.9 H Plt Count 178 MPV 10.9 Segmented Neutrophils 44 Band Neutrophils 25 H Lymphocytes (Manual) 13 L Monocytes (Manual) 14 H Eosinophils (Manual) 3 Metamyelocytes 1 Atypical Lymphocytes Toxic Granulation Dohle Bodies 2+ Platelet Estimate NORMAL RBC Morphology ABNORMAL Polychromasia 1+ Poikilocytosis 3+ Anisocytosis Tear Drop Cells 1+ Ovalocytes 1+ Acanthocytes (Spur) 2+ Schistocytes 2+ PT INR APTT Puncture Site RIGHT RADIAL pCO2 24 L pO2 159 H* Base Excess -3.3 L O2 Saturation 97.2 ABG pH 7.49 H ABG HCO3 18.3 L ABG O2 Sat (Measured) 97.2 Adrian Test YES A-a Gradient 11 a/A Ratio 0.94 Hemoglobin 8.2 Carboxyhemoglobin 0.0 Methemoglobin 0.0 L Potassium 2.9 L* Temperature 37.0 POC O2 Flow Rate 28 Sodium Chloride Carbon Dioxide Anion Gap BUN Creatinine Estimated GFR Glucose Lactic Acid 0.6 Calcium Magnesium Total Bilirubin AST ALT Alkaline Phosphatase Serum Total Protein Albumin Prealbumin Urine Color Urine Appearance Urine pH Ur Specific [place] Urine Protein Urine Ketones Urine Blood Urine Nitrite Urine Bilirubin Urine Urobilinogen Ur Leukocyte Esterase Urine WBC (Auto) Urine RBC (Auto) U Hyaline Cast (Auto) U Epithel Cells (Auto) Urine Bacteria (Auto) Urine Mucus (Auto) Urine Culture Reflexed Urine Glucose 01/12/20 22:00 WBC RBC Hgb Hct MCV MCH MCHC RDW Plt Count MPV Segmented Neutrophils Band Neutrophils Lymphocytes (Manual) Monocytes (Manual) Eosinophils (Manual) Metamyelocytes Atypical Lymphocytes Toxic Granulation Dohle Bodies Platelet Estimate RBC Morphology Polychromasia Poikilocytosis Anisocytosis Tear Drop Cells Ovalocytes Acanthocytes (Spur) Schistocytes PT INR APTT Puncture Site pCO2 pO2 Base Excess O2 Saturation ABG pH ABG HCO3 ABG O2 Sat (Measured) Adrian Test A-a Gradient a/A Ratio Hemoglobin Carboxyhemoglobin Methemoglobin Potassium Temperature POC O2 Flow Rate Sodium Chloride Carbon Dioxide Anion Gap BUN Creatinine Estimated GFR Glucose Lactic Acid Calcium Magnesium 1.9 Total Bilirubin AST ALT Alkaline Phosphatase Serum Total Protein Albumin Prealbumin Urine Color Urine Appearance Urine pH Ur Specific [place] Urine Protein Urine Ketones Urine Blood Urine Nitrite Urine Bilirubin Urine Urobilinogen Ur Leukocyte Esterase Urine WBC (Auto) Urine RBC (Auto) U Hyaline Cast (Auto) U Epithel Cells (Auto) Urine Bacteria (Auto) Urine Mucus (Auto) Urine Culture Reflexed Urine Glucose Orders (Last 24 hours) Category Date Time Status Bedrest ROUTINE Activity 01/13/20 01:24 Active Accucheck Q4H Care 01/13/20 01:24 Active Admit as Inpatient ROUTINE Care 01/13/20 01:24 Active CO2 Monitoring CONTINUOUS Care 01/13/20 01:24 Active Cartridge Belt Puncher STAT Care 01/12/20 21:38 Completed Catheter-[place] STAT Care 01/12/20 21:37 Completed Code Status Order ROUTINE Care 01/13/20 01:24 Active Code Status Order ROUTINE Care 01/13/20 01:24 Completed EKG-ER Only STAT Care 01/12/20 21:37 Completed ISDH COVID Approval STAT Care 01/13/20 01:24 Active IV Care Q6H Care 01/13/20 01:24 Active IV Care Q6H Care 01/13/20 01:24 Completed IV Insertion STAT Care 01/12/20 21:37 Completed IV Insertion-2nd Peripheral STAT Care 01/12/20 21:37 Completed Isolation, Initiate & Maintain Q4H Care 01/13/20 01:47 Active Isolation, Initiate & Maintain Q6H Care 01/13/20 01:24 Active NPO (ED) STAT Care 01/12/20 21:37 Completed Sequential Compression Device Q6H Care 01/13/20 01:24 Active Weight,Daily 0600 Care 01/13/20 01:24 Active Infection Control Consult Cons 01/13/20 04:25 Active Orthopedic Shoe Fitter/Discharge Plan Cons 01/13/20 04:25 Active Consistent Carbohydrate Diet 1800 Calorie Diet 01/13/20 Dinner Active Nutritional Admission Screen Diet 01/13/20 04:25 Active CHEST 1 VIEW (PORTABLE) Stat Exams 01/12/20 21:37 Completed CTA HEAD W AND/OR WO CONTRAST [CT] Stat Exams 01/12/20 23:17 Completed HEAD WITHOUT CONTRAST [CT] Stat Exams 01/12/20 21:37 Completed ARTERIAL BLOOD GASES Urgent Lab 01/12/20 22:12 Completed BLOOD CULTURE Stat Lab 01/12/20 23:31 Received CBC AM.LAB Lab 01/13/20 05:01 Results CBC W DIFF Stat Lab 01/12/20 22:15 Completed CMP AM.LAB Lab 01/13/20 05:01 Completed CMP Stat Lab 01/12/20 22:15 Completed CULTURE,URINE Stat Lab 01/12/20 23:37 Received Lactic Acid Stat Lab 01/12/20 22:12 Completed MAG [MAGNESIUM] Stat Lab 01/12/20 22:00 Completed Manual Differential NC Routine Lab 01/13/20 05:01 Results Manual Differential NC Stat Lab 01/12/20 22:15 Completed PREALBUMIN Routine Lab 01/13/20 05:01 Completed PROTIME WITH INR Stat Lab 01/12/20 22:15 Completed PTT Stat Lab 01/12/20 22:15 Completed Pathologist Review Routine Lab 01/13/20 05:01 Results TRAVON-CoV-2, DEVI Stat Lab 01/13/20 01:12 Received UA W/RFX UR CULTURE Stat Lab 01/12/20 23:37 Completed Albuterol Common Canister [Ventolin Common Canister* Med 01/13/20 01:24 Active ] 4 puff IH Q4H PRN PRN Enoxaparin Sodium [Enoxaparin Sodium] Med 01/13/20 10:00 Active 40 mg SQ DAILY Famotidine 20 mg Vial [Pepcid 20 MG VIAL] Med 01/13/20 10:00 Active 20 mg IV Q12HT Insulin Lispro [Humalog] Med 01/13/20 01:24 Active See Dose Instructions SQ UD PRN NaCl 0.9% 1000 ml [Sodium Chloride 0.9% 1000 ML] 1,000 Med 01/12/20 21:49 Discontinued ml .ROUTE UD NaCl 0.9% 1000 ml [Sodium Chloride 0.9% 1000 ML] 1,000 Med 01/13/20 01:24 Active ml IV 100 mls/hr NaCl 0.9% 1000 ml [Sodium Chloride 0.9% 1000 ML] 1,000 Med 01/12/20 21:37 Discontinued ml IV 999 mls/hr NaCl 0.9% 100Ml [Sodium Chloride 0.9% 100 ML IVPB] 100 Med 01/12/20 23:54 Discontinued ml IV UD Ondansetron HCl 4 mg/2 ml [Zofran 4 MG/2 ML VIAL] Med 01/13/20 01:24 Active 4 mg IV Q6H PRN PRN Piperacillin/Tazobactam 3.375G [Zosyn 3.375 GM Vial] Med 01/12/20 23:52 Discontinued 3.375 gm IV .STK-MED ONE Piperacillin/Tazobactam 3.375G [Zosyn 3.375 GM Vial] Med 01/13/20 04:39 Discontinued 3.375 gm IV .STK-MED ONE Piperacillin/Tazobactam 3.375G [Zosyn 3.375 GM Vial] 3. Med 01/13/20 01:24 Active 375 gm NaCl 0.9% 100 ml Mini-Bag Plus [Sodium Chloride 100ML MINI-BAG PLUS] 100 ml IV Q6HT Piperacillin/Tazobactam 3.375G [Zosyn 3.375 GM Vial] 3. Med 01/12/20 23:13 Discontinued 375 gm NaCl 0.9% 100 ml Mini-Bag Plus [Sodium Chloride 100ML MINI-BAG PLUS] 100 ml IV STAT Vancomycin HCl 1 gm Premix [Vancomycin 1GM/ Ns 250ML Med 01/12/20 23:15 Discontinued ] 250 ml IV Q1H Vancomycin HCl 1 gm Premix [Vancomycin 1GM/ Ns 250ML Med 01/12/20 23:52 Discontinued ] 250 ml IV UD OT Screen per Nursing Assess OT 01/13/20 04:25 Active PT Eval & Treat (MD Order) PT 01/13/20 01:24 Active PT Screen per Nursing Assess PT 01/13/20 04:25 Active Oxygen Nasal Cannula 2 lpm RT 01/13/20 05:22 Active Pulse Oximetry .continuos RT 01/13/20 05:22 Active Respiratory Therapy Assessment DAILY RT 01/13/20 05:22 Active Respiratory Therapy Consult ROUTINE RT 01/13/20 01:[address] Eval & Treat (MD Order) ST 01/13/20 01:24 Active Patient Care Notes (Last 24 hours) 01/13/20 12:31 BROKER IN CHARGE Note by Aurora Jara Assisted patient up in a chair patient states shes weak but alot better patient able with minimal assist. Initialized on 01/13/20 12:31 - END OF NOTE - Vitals & Intake/Output Vital Signs: Vital Signs Temperature 98.1 F 01/13/20 11:57 Pulse Rate 59 L 01/13/20 11:57 Respiratory Rate 16 01/13/20 11:57 Blood Pressure 120/59 01/13/20 11:57 O2 Sat by Pulse Oximetry 94 L 01/13/20 11:57 Intake & Output: Intake & Output 01/11/20 01/12/20 01/13/20 01/14/20 11:59 11:59 11:59 11:59 Output Total 650 Balance -650 Weight 60.781 kg - Lab Result Diagrams: 01/13/20 05:01 01/13/20 05:01 Lab Results-Last 24 Hrs: Accuchecks Date 01/13/20 Date 01/13/20 Time 08:00 Time 04:00 Accucheck Value: 104 Lab Results-Last 24 Hours 01/12/20 01/12/20 01/12/20 Range/Units 22:00 22:12 22:12 WBC (4.0-10.5) K/mm3 RBC (4.1-5.4) M/mm3 Hgb (12.0-16.0) gm/dl Hct (35-47) % MCV (78-100) fl MCH (26-32) pg MCHC (32-36) g/dl RDW (11.5-14.0) % Plt Count (150-450) K/mm3 MPV (7.5-11.0) fl Segmented Neutrophils (36.0-66.0) % Band Neutrophils (0.0-2.0) % Lymphocytes (Manual) (24-44) % Monocytes (Manual) (0.0-12.0) % Eosinophils (Manual) (0.00-3.0) % Metamyelocytes % Atypical Lymphocytes % Toxic Granulation Dohle Bodies Platelet Estimate (NORMAL) RBC Morphology Polychromasia Poikilocytosis Anisocytosis Tear Drop Cells Ovalocytes Acanthocytes (Spur) Schistocytes Smear Path Review PT (9.95-12.35) SECONDS INR (0.8-3.0) APTT (25.3-37.0) SECONDS Puncture Site RIGHT RADIAL pCO2 24 L (35-45) mmHg pO2 159 H* (75-100) mmHg Base Excess -3.3 L (-2.0-2.0) O2 Saturation 97.2 (94-100) g/dF ABG pH 7.49 H (7.35-7.45) ABG HCO3 18.3 L (22-28) ABG O2 Sat (Measured) 97.2 (95-100) % Adrian Test YES A-a Gradient 11 a/A Ratio 0.94 Hemoglobin 8.2 Carboxyhemoglobin 0.0 (0.0-6.9) % THgb Methemoglobin 0.0 L (1.4-1.5) % Potassium 2.9 L* (3.5-5.1) Temperature 37.0 C POC O2 Flow Rate 28 % Sodium (137-145) mmol/L Chloride (98-107) mmol/L Carbon Dioxide (22-30) mmol/L Anion Gap (5-15) MEQ/L BUN (7-17) mg/dL Creatinine (0.52-1.04) mg/dL Estimated GFR ML/MIN Glucose (74-106) mg/dL Lactic Acid 0.6 (0.4-2.0) Calcium (8.4-10.2) mg/dL Magnesium 1.9 (1.6-2.3) mg/dL Total Bilirubin (0.2-1.3) mg/dL AST (14-36) U/L ALT (0-35) U/L Alkaline Phosphatase (38-126) U/L Serum Total Protein (6.3-8.2) g/dL Albumin (3.5-5.0) g/dL Prealbumin (17.6-36.0) mg/dL Urine Color (YELLOW) Urine Appearance (CLEAR) Urine pH (5-6) Ur Specific [place] (1.005-1.025) Urine Protein (Negative) Urine Ketones (NEGATIVE) Urine Blood (0-5) Marcus/ul Urine Nitrite (NEGATIVE) Urine Bilirubin (NEGATIVE) Urine Urobilinogen (0-1) mg/dL Ur Leukocyte Esterase (NEGATIVE) Urine WBC (Auto) (0-5) /HPF Urine RBC (Auto) (0-2) /HPF U Hyaline Cast (Auto) (0-2) /LPF U Epithel Cells (Auto) (FEW) /HPF Urine Bacteria (Auto) (NEGATIVE) /HPF Urine Mucus (Auto) (NEGATIVE) /HPF Urine Culture Reflexed (NO) Urine Glucose (NEGATIVE) mg/dL 01/12/20 01/12/20 01/12/20 Range/Units 22:15 22:15 22:15 WBC 2.6 L (4.0-10.5) K/mm3 RBC 2.90 L (4.1-5.4) M/mm3 Hgb 8.1 L (12.0-16.0) gm/dl Hct 25.0 L (35-47) % MCV 86.2 (78-100) fl MCH 27.9 (26-32) pg MCHC 32.4 (32-36) g/dl RDW 15.9 H (11.5-14.0) % Plt Count 178 (150-450) K/mm3 MPV 10.9 (7.5-11.0) fl Segmented Neutrophils 44 (36.0-66.0) % Band Neutrophils 25 H (0.0-2.0) % Lymphocytes (Manual) 13 L (24-44) % Monocytes (Manual) 14 H (0.0-12.0) % Eosinophils (Manual) 3 (0.00-3.0) % Metamyelocytes 1 % Atypical Lymphocytes % Toxic Granulation Dohle Bodies 2+ Platelet Estimate NORMAL (NORMAL) RBC Morphology ABNORMAL Polychromasia 1+ Poikilocytosis 3+ Anisocytosis Tear Drop Cells 1+ Ovalocytes 1+ Acanthocytes (Spur) 2+ Schistocytes 2+ Smear Path Review PT 16.1 H (9.95-12.35) SECONDS INR 1.41 (0.8-3.0) APTT 24.3 L (25.3-37.0) SECONDS Puncture Site pCO2 (35-45) mmHg pO2 (75-100) mmHg Base Excess (-2.0-2.0) O2 Saturation (94-100) g/dF ABG pH (7.35-7.45) ABG HCO3 (22-28) ABG O2 Sat (Measured) (95-100) % Adrian Test A-a Gradient a/A Ratio Hemoglobin Carboxyhemoglobin (0.0-6.9) % THgb Methemoglobin (1.4-1.5) % Potassium 3.2 L (3.5-5.1) Temperature C POC O2 Flow Rate % Sodium 133 L (137-145) mmol/L Chloride 103 (98-107) mmol/L Carbon Dioxide 20 L (22-30) mmol/L Anion Gap 12.5 (5-15) MEQ/L BUN 16 (7-17) mg/dL Creatinine 0.54 (0.52-1.04) mg/dL Estimated GFR > 60.0 ML/MIN Glucose 153 H (74-106) mg/dL Lactic Acid (0.4-2.0) Calcium 7.6 L (8.4-10.2) mg/dL Magnesium (1.6-2.3) mg/dL Total Bilirubin 1.00 (0.2-1.3) mg/dL AST 13 L (14-36) U/L ALT 10 (0-35) U/L Alkaline Phosphatase 48 (38-126) U/L Serum Total Protein 5.1 L (6.3-8.2) g/dL Albumin 2.8 L (3.5-5.0) g/dL Prealbumin (17.6-36.0) mg/dL Urine Color (YELLOW) Urine Appearance (CLEAR) Urine pH (5-6) Ur Specific [place] (1.005-1.025) Urine Protein (Negative) Urine Ketones (NEGATIVE) Urine Blood (0-5) Marcus/ul Urine Nitrite (NEGATIVE) Urine Bilirubin (NEGATIVE) Urine Urobilinogen (0-1) mg/dL Ur Leukocyte Esterase (NEGATIVE) Urine WBC (Auto) (0-5) /HPF Urine RBC (Auto) (0-2) /HPF U Hyaline Cast (Auto) (0-2) /LPF U Epithel Cells (Auto) (FEW) /HPF Urine Bacteria (Auto) (NEGATIVE) /HPF Urine Mucus (Auto) (NEGATIVE) /HPF Urine Culture Reflexed (NO) Urine Glucose (NEGATIVE) mg/dL 01/12/20 01/13/20 01/13/20 Range/Units 23:37 05:01 05:01 WBC 1.9 L* (4.0-10.5) K/mm3 RBC 2.74 L (4.1-5.4) M/mm3 Hgb 7.5 L (12.0-16.0) gm/dl Hct 23.7 L (35-47) % MCV 86.5 (78-100) fl MCH 27.4 (26-32) pg MCHC 31.6 L (32-36) g/dl RDW 16.0 H (11.5-14.0) % Plt Count 172 (150-450) K/mm3 MPV 10.9 (7.5-11.0) fl Segmented Neutrophils 44 (36.0-66.0) % Band Neutrophils 20 H (0.0-2.0) % Lymphocytes (Manual) 31 (24-44) % Monocytes (Manual) 1 (0.0-12.0) % Eosinophils (Manual) 3 (0.00-3.0) % Metamyelocytes % Atypical Lymphocytes 1 % Toxic Granulation 1+ Dohle Bodies Platelet Estimate NORMAL (NORMAL) RBC Morphology ABNORMAL Polychromasia RARE Poikilocytosis 2+ Anisocytosis 2+ Tear Drop Cells Ovalocytes Acanthocytes (Spur) Schistocytes 1+ Smear Path Review Pending PT (9.95-12.35) SECONDS INR (0.8-3.0) APTT (25.3-37.0) SECONDS Puncture Site pCO2 (35-45) mmHg pO2 (75-100) mmHg Base Excess (-2.0-2.0) O2 Saturation (94-100) g/dF ABG pH (7.35-7.45) ABG HCO3 (22-28) ABG O2 Sat (Measured) (95-100) % Adrian Test A-a Gradient a/A Ratio Hemoglobin Carboxyhemoglobin (0.0-6.9) % THgb Methemoglobin (1.4-1.5) % Potassium 3.0 L (3.5-5.1) Temperature C POC O2 Flow Rate % Sodium 135 L (137-145) mmol/L Chloride 107 (98-107) mmol/L Carbon Dioxide 21 L (22-30) mmol/L Anion Gap 10.9 (5-15) MEQ/L BUN 11 (7-17) mg/dL Creatinine 0.37 L (0.52-1.04) mg/dL Estimated GFR > 60.0 ML/MIN Glucose 110 H (74-106) mg/dL Lactic Acid (0.4-2.0) Calcium 7.3 L (8.4-10.2) mg/dL Magnesium (1.6-2.3) mg/dL Total Bilirubin 0.60 (0.2-1.3) mg/dL AST 10 L (14-36) U/L ALT 9 (0-35) U/L Alkaline Phosphatase 47 (38-126) U/L Serum Total Protein 4.5 L (6.3-8.2) g/dL Albumin 2.4 L (3.5-5.0) g/dL Prealbumin (17.6-36.0) mg/dL Urine Color YELLOW (YELLOW) Urine Appearance SLIGHTLY CLOUDY (CLEAR) Urine pH 5.0 (5-6) Ur Specific [place] 1.025 (1.005-1.025) Urine Protein 30 (Negative) Urine Ketones MODERATE (NEGATIVE) Urine Blood MODERATE (0-5) Marcus/ul Urine Nitrite POSITIVE (NEGATIVE) Urine Bilirubin NEGATIVE (NEGATIVE) Urine Urobilinogen NEGATIVE (0-1) mg/dL Ur Leukocyte Esterase NEGATIVE (NEGATIVE) Urine WBC (Auto) 3-5 (0-5) /HPF Urine RBC (Auto) 0-2 (0-2) /HPF U Hyaline Cast (Auto) 11-25 (0-2) /LPF U Epithel Cells (Auto) NONE (FEW) /HPF Urine Bacteria (Auto) FEW (NEGATIVE) /HPF Urine Mucus (Auto) MANY (NEGATIVE) /HPF Urine Culture Reflexed YES (NO) Urine Glucose >=500 (NEGATIVE) mg/dL 01/13/20 Range/Units 05:01 WBC (4.0-10.5) K/mm3 RBC (4.1-5.4) M/mm3 Hgb (12.0-16.0) gm/dl Hct (35-47) % MCV (78-100) fl MCH (26-32) pg MCHC (32-36) g/dl RDW (11.5-14.0) % Plt Count (150-450) K/mm3 MPV (7.5-11.0) fl Segmented Neutrophils (36.0-66.0) % Band Neutrophils (0.0-2.0) % Lymphocytes (Manual) (24-44) % Monocytes (Manual) (0.0-12.0) % Eosinophils (Manual) (0.00-3.0) % Metamyelocytes % Atypical Lymphocytes % Toxic Granulation Dohle Bodies Platelet Estimate (NORMAL) RBC Morphology Polychromasia Poikilocytosis Anisocytosis Tear Drop Cells Ovalocytes Acanthocytes (Spur) Schistocytes Smear Path Review PT (9.95-12.35) SECONDS INR (0.8-3.0) APTT (25.3-37.0) SECONDS Puncture Site pCO2 (35-45) mmHg pO2 (75-100) mmHg Base Excess (-2.0-2.0) O2 Saturation (94-100) g/dF ABG pH (7.35-7.45) ABG HCO3 (22-28) ABG O2 Sat (Measured) (95-100) % Adrian Test A-a Gradient a/A Ratio Hemoglobin Carboxyhemoglobin (0.0-6.9) % THgb Methemoglobin (1.4-1.5) % Potassium (3.5-5.1) Temperature C POC O2 Flow Rate % Sodium (137-145) mmol/L Chloride (98-107) mmol/L Carbon Dioxide (22-30) mmol/L Anion Gap (5-15) MEQ/L BUN (7-17) mg/dL Creatinine (0.52-1.04) mg/dL Estimated GFR ML/MIN Glucose (74-106) mg/dL Lactic Acid (0.4-2.0) Calcium (8.4-10.2) mg/dL Magnesium (1.6-2.3) mg/dL Total Bilirubin (0.2-1.3) mg/dL AST (14-36) U/L ALT (0-35) U/L Alkaline Phosphatase (38-126) U/L Serum Total Protein (6.3-8.2) g/dL Albumin (3.5-5.0) g/dL Prealbumin 6.99 L (17.6-36.0) mg/dL Urine Color (YELLOW) Urine Appearance (CLEAR) Urine pH (5-6) Ur Specific [place] (1.005-1.025) Urine Protein (Negative) Urine Ketones (NEGATIVE) Urine Blood (0-5) Marcus/ul Urine Nitrite (NEGATIVE) Urine Bilirubin (NEGATIVE) Urine Urobilinogen (0-1) mg/dL Ur Leukocyte Esterase (NEGATIVE) Urine WBC (Auto) (0-5) /HPF Urine RBC (Auto) (0-2) /HPF U Hyaline Cast (Auto) (0-2) /LPF U Epithel Cells (Auto) (FEW) /HPF Urine Bacteria (Auto) (NEGATIVE) /HPF Urine Mucus (Auto) (NEGATIVE) /HPF Urine Culture Reflexed (NO) Urine Glucose (NEGATIVE) mg/dL Micro Results-Entire Visit: Accuchecks Date 01/13/20 Date 01/13/20 Time 08:00 Time 04:00 Accucheck Value: 104 - Radiology Exams Ordered Rad Exams-Entire Visit: Radiology Procedures Category Date Time Status CHEST 1 VIEW (PORTABLE) Stat Exams 01/12/20 21:[address] ANGIOGRAPHY NECK [CT] Routine Exams 01/12/20 01:18 Completed CTA HEAD W AND/OR WO CONTRAST [CT] Stat Exams 01/12/20 23:17 Completed HEAD WITHOUT CONTRAST [CT] Stat Exams 01/12/20 21:37 Completed - Procedures and Test Procedures and Tests throughout Hospitalization: Therapy Orders & Screens 01/13/20 01:24 PT Eval & Treat ( Order) Reason for Eval:: stroke like sx Diagnosis: stroke like sx Respiratory Therapy Consult ROUTINE Comment: Reason For Exam: ST Eval & Treat ( Order) Comment: Physician Instructions: Reason For Exam: Evaluate: Yes Treat: Yes Reason for Eval: stroke like sx Diagnosis: stroke like sx 01/13/20 04:25 OT Screen per Nursing Assess Comment: Protocol Order Physician Instructions: Greater than 3 points order OT Admission Screening Reason For Exam: Triggered on Admission Diagnosis: Acute Encephalopathy; UTI; Sepsis Open Wound/Cellutlitis/Pressure Ulcers: No Acute Fx/ORIF/Change in wt bearing status: No Severe MUSCULOSKELETAL pain: No ADL Dysfunction: Yes Acute CVA w/Hemiparesis/Hemiplegia: No Decreased Functional Mobility/Strength: Yes Sprain/Strain: No Acute Post-op Mobility Dysfunction: No Total Points: 4 PT Screen per Nursing Assess Comment: Protocol Order Physician Instructions: Greater than 3 points order PT Admission Screenin Reason For Exam: Triggered on Admission Diagnosis: Acute Encephalopathy; UTI; Sepsis Open Wound/Cellutlitis/Pressure Ulcers: No Acute Fx/ORIF/Change in wt bearing status: No Severe MUSCULOSKELETAL pain: No ADL Dysfunction: Yes Acute CVA w/Hemiparesis/Hemiplegia: No Decreased Functional Mobility/Strength: Yes Sprain/Strain: No Acute Post-op Mobility Dysfunction: No Total Points: 4 01/13/20 05:22 Oxygen Nasal Cannula 2 lpm Comment: Diagnosis: Acute Encephalopathy; UTI; Sepsis Respiratory Therapy Assessment DAILY Comment: Diagnosis: Acute Encephalopathy; UTI; Sepsis - Discharge Discharge Date: 01/13/20 Disposition: Home, Self-Care Condition: Stable Prescriptions: No Action Potassium Chloride [Klor-Con M20] 40 meq PO DAILY Lisinopril/Hydrochlorothiazide [Lisinopril-Hctz 10-12.5 mg Tab] 1 tab PO DAILY Atorvastatin Calcium [Lipitor] 40 mg PO HS Promethazine HCl 25 mg [Phenergan 25 mg] 25 mg PO Q6H PRN PRN PRN Reason: Nausea Metformin HCl 500 mg [Glucophage 500 MG] 500 mg PO DAILY Pomalidomide [Pomalyst] 4 mg PO UD Omeprazole 20 mg PO BID Magnesium Oxide 400 mg [Mag-Ox 400] 400 mg PO BID Potassium Chloride [Klor-Con M20] 20 meq PO HS Potassium Chloride [Klor-Con M20] 20 meq PO HS Follow up with: JUAN RAMON MONTANO MD [Primary Care Provider] - 1 Week Forms: Discharge Instructions
== END 2020-01-13 13:15 | disposition home or self-care (01) ==
LOC: ED 21:04 → INTOOBSV 01-13 01:22 → MED SURG 01-13 01:22
PROVIDERS: ADMIT Family Medicine; ATTEND General Practice
DX: G93.40 Encephalopathy, unspecified (principal); Z03.818 Encounter for observation for suspected exposure to other biological agents ruled out; N39.0 Urinary tract infection, site not specified; C90.00 Multiple myeloma not having achieved remission; R53.1 Weakness; T68.XXXA Hypothermia, initial encounter; A41.9 Sepsis, unspecified organism; R29.90 Unspecified symptoms and signs involving the nervous system; Z79.899 Other long term (current) drug therapy
CPT/HCPCS: 51702; 70450; 70496; 70498; 80053; 81001; 82375; 82803; 82962; 83605; 83735; 84134; 85025; 85027; 85610; 85730; 87040; 87077; 87086; 87186; 93005; 93041; 94762; 94770; 96360; 96365; 99291; 99292; G0378; U0003; 36000; 36415; 36600; 71045; 99285; J1650; J3370